=== PATIENT | male | born 1940 | race Caucasian/White ===

== ENCOUNTER 2018-07-23 09:36 | Inpatient (IN) | payer OTHER ==
[~2018-07-23] VITALS: Ht 167.6 cm; Wt 70.8 kg
[2018-07-23] MEDS ORDERED: LIPITOR40 MG (10:43)
[2018-07-23] MEDS ORDERED: LOSARTAN POTAS100 MG (10:43)
[2018-07-23] MEDS ORDERED: METOPROLOL SUCC50 MG (10:43)
--- NOTE | 2018-07-23 10:46 | NUR ---
PACIENTE ALERTA Y ORIENTADO POR RAFA ESFERAS QUIEN REFIERE DEBILIDAD, DOLOR ABDOMINAL Y VOMITOS Y DIARREAS X1.
--- NOTE | 2018-07-23 11:46 | NUR ---
MS LOGRONO ORIENTA A PACIENTE SOBRE ORDENES MEDICAS. ADMINISTRA MEDICAMENTOS, CANALIZA PACIENTE Y COLECTA MUESTRAS DE LABORATORIO ORDENADAS BAJO MEDIDAS ASEPTICAS. PENDIENTE A RESULTADOS DE LABORATORIO Y CT SCAN PARA RE-EVALUACION MEDICA.
--- NOTE | 2018-07-23 14:05 | NUR ---
PT CON CONSULTA CON DR Gerry HOLGUIN Y DRA MCCORMICK.
== END 2018-07-27 19:04 | disposition home or self-care (01) | DRG 194 ==
LOC: ER 09:36 → MEDJ 16:41
PROVIDERS: ADMIT Internal Medicine
PROC: 3E0F7GC Introduction of Other Therapeutic Substance into Respiratory Tract, Via Natural or Artificial Opening (ICD-10-PCS; 2018-07-23)
PROC: B030ZZZ Magnetic Resonance Imaging (MRI) of Brain (ICD-10-PCS; 2018-07-24)
PROC: BW24ZZZ Computerized Tomography (CT Scan) of Chest and Abdomen (ICD-10-PCS; 2018-07-24)
PROC: BW28ZZZ Computerized Tomography (CT Scan) of Head (ICD-10-PCS; principal; 2018-07-26)
PROC: B246ZZZ Ultrasonography of Right and Left Heart (ICD-10-PCS; 2018-07-26)
PROC: 4A12X4Z Monitoring of Cardiac Electrical Activity, External Approach (ICD-10-PCS; 2018-07-26)
DX: J10.1 Influenza due to other identified influenza virus with other respiratory manifestations (principal); N17.8 Other acute kidney failure; R65.10 Systemic inflammatory response syndrome (SIRS) of non-infectious origin without acute organ dysfunction; R42 Dizziness and giddiness; R09.02 Hypoxemia; R26.81 Unsteadiness on feet; I49.8 Other specified cardiac arrhythmias; A49.3 Mycoplasma infection, unspecified site; I73.89 Other specified peripheral vascular diseases; I10 Essential (primary) hypertension; E78.49 Other hyperlipidemia; E78.00 Pure hypercholesterolemia, unspecified
CPT/HCPCS: 70551

== ENCOUNTER 2021-12-27 10:31 | Emergency (ER) | payer OTHER ==
[~2021-12-27] VITALS: Ht 170.2 cm; Wt 65.8 kg
[~2021-12-27 10:31] MED LIST: LIPITOR40 MG; LOSARTAN POTAS100 MG; METOPROLOL SUCC50 MG
[2021-12-27] MEDS ORDERED: OMEPRAZOLE20 M1 PO (10:52)
[2021-12-27] MEDS ORDERED: ADULT LOW DOSE81 M1 PO (10:53)
[2021-12-27] MEDS ORDERED: CHLORTHALIDONE25 MG PO (10:53)
[2021-12-27] MEDS ORDERED: PROBIOTIC1 EACH PO (18:50)
[2021-12-27] MEDS ORDERED: PEPCID AC20 MG PO (18:50)
== END 2021-12-27 18:59 | disposition home or self-care (01) ==
LOC: ER 10:31
DX: R10.9 Unspecified abdominal pain (principal); I10 Essential (primary) hypertension; K57.30 Diverticulosis of large intestine without perforation or abscess without bleeding